=== PATIENT | male | born 1950 | race Caucasian/White ===

== ENCOUNTER → 2021-04-30 | Outpatient (CLI) | payer OTHER ==
[~2021-04-30] VITALS: Ht 175.3 cm; Wt 74.8 kg
[~2021-04-30] MED LIST: ANORO ELLIPTA1 EACH INH; ASA81BEC PO; CELEXA 10 MG TA10 M1 PO; COMBIVENT INH; COMBIVENT RESPIM4 GM PO; CYMBALTA60 MG PO; HYDROCHLOROTHIA25 M1 PO; INCRUSE ELLI62.5 MCG INH; LEVOTHYROXINE137 MC1 PO; LIPITOR40 MG PO; NORVASC10 MG PO; PLAVIX 75 MG TA75 MG PO; PROTONIX 20 MG20 MG PO; TRAMADOL 50 MG50 MG PO; ZESTRIL40 MG PO
[2021-04-30 15:03] VITALS: BP 112/61
--- NOTE | 2021-04-30 15:17 | NUR ---
Pain Clinic Assessment: 1. History of Osteoarthritis: Left Upper Extremity Right Upper Extremity History of Rheumatoid Arthritis: Not Applicable 2. Height: 5 ft. 9 in. 175.3 cm. Weight: 165.0 lb. oz. 74.844 kg. Patient's BMI: 24.4 3. Vital Signs: BP: 112/61 Pulse: 78 Resp: 18 Temp: 02 Sat: 96 ECG Mon: 4. Pain Intensity: 8 5. Fall Risk: Dizziness: N Needs help standing or walking: N Fallen in the last 3 months: N Fall risk comments: 6. Patient on Blood Thinner: Clopidogrel Bisulf(Plavix 7. History of Hypertension: Y 8. Opioid Therapy greater than 6 weeks: N Opiate Contract Signed: 9. Risk Assessment Tool Provided: LOW 10. Functional Assessment Tool: 11. Recreational Drug Use: Past greater than 3 mos Drug Type: MARAJUANIA Tobacco Use: Current Every Day Smoker Tobacco Type: Cigarettes Amount or Packs/day: 1/2-1 How Many Years: 57 Alcohol Use: No Frequency: Quant:
--- NOTE | 2021-05-07 09:33 | HPC ---
[facility] [place] [address] PAIN MANAGEMENT CONSULTATION Name: TERRI ANDERSON Room #: REG AJAY Montero.#: [id number] Admission: 04/30/21 Attend Phys: Oliver Chambers DO Discharge: Date of : 50 Report #: [id number] THIS REPORT FOR: cc: Jevon Viera MD, Mark S. MD Johnson, James E. DO ~ DOC #: [id number] cc: MD Oliver Sandoval, DATE OF SERVICE: 04/30/2021 REFERRING PHYSICIAN: Dr. Jevon Viera. CHIEF COMPLAINT: Low back pain, bilateral buttock pain and bilateral hand pain. HISTORY OF PRESENT ILLNESS: As you know, the patient is a 70-year-old male with longstanding history of chronic low back pain, bilateral hand pain due to osteoarthritis. He indicates the pain began in 2007, no inciting injury or trauma. He has significant changes to the joints of the hands consistent with osteoarthritic changes. He complains of low back pain that does not radiate except to the upper buttock area. He indicates that he has had these problems for years. He has sought a chiropractic manipulation, which did improved symptoms to some degree. He has had ongoing progressively worsening symptoms over the last 6 months. He reports no significant weakness or changes in distribution over the past couple of years. There is no radicular component to the patient's pain. His descriptors are more of aching and gnawing sensations and he described no paresthesias. He recently sought evaluation through his physician, Dr. Viera who had the patient undergo imaging studies to determine whether interventional treatments would be necessary. He was referred to our clinic after the findings of his lumbar spine showed changes at multiple levels to discuss interventional treatment options. The patient reports today his pain is continuous. He describes the pain as shooting and sharp. Places current pain score at 8/10, daily average at 7-8/10, worst pain has been is 10/10. The patient states his pain is exacerbated with most activities such as walking, standing and sitting, improves with lying down and repositioning. He has been referred to our service to discuss treatment options for axial back pain. PAST MEDICAL HISTORY: 1. Osteoarthritis. 2. Hypertension. 3. Hypothyroidism. 4. Degenerative joint disease. 5. Severe tobacco habituation. 6. History of stroke. [address] [address] PAIN MANAGEMENT CONSULTATION Name: TERRI ANDERSON Room #: REG AJAY Dax#: [id number] Admission: 04/30/21 Attend Phys: Oliver Chambers DO Discharge: Date of : 50 Report #: [id number] 7. Erectile dysfunction. 8. Dyslipidemia. PAST SURGICAL HISTORY: 1. Coronary artery stenting. 2. Bilateral kidney surgery. 3. Right hand surgery. SOCIAL HISTORY: The patient smokes 4 packs of tobacco per day, has done so for 57 years. Denies IV or illicit drug use. Denies any chronic alcohol use. He is retired and retired years ago. He is not receiving workmen's compensation nor is he trying to obtain disability benefits. He is not in litigation in regards to pain. He is unaccompanied at today's visit. REVIEW OF SYSTEMS: Positive for decrease in appetite, weight changes, night sweats, fatigue, weakness, frequent and recurrent headaches. He is wearing corrective eyewear, double vision and blurred vision, cataracts, hearing loss with tinnitus, shortness of breath with all activities, cardiovascular disease, frequent and recurrent coughs, loss of appetite, sexual difficulty, skin color changes, history of stroke, nervousness, depression and thyroid disease. All other review of systems negative per 12-point review of systems other than those listed in history of present illness. Pain impact score 27/70. Moderate interference of daily activities secondary to pain. ALLERGIES: SULFA AND BUPROPION. CURRENT MEDICATIONS: Hydrochlorothiazide 25 mg per day, amlodipine 10 mg per day, atorvastatin 40 mg per day, Anoro Ellipta 62.5/25 mcg inhaled, escitalopram 10 mg daily, lisinopril 40 mg per day, duloxetine 60 mg once a day, Plavix 75 mg per day, pantoprazole 20 mg per day, ipratropium bromide 4 times a day, tramadol 50 mg b.i.d., levothyroxine 137 mcg per day, Incruse Ellipta inhaler once a day, aspirin 81 mg per day. IMAGING: MRI lumbar spine obtained 04/10/2021 shows T12-L1 unremarkable. L1-L2 unremarkable. L2-L3 shows left paracentral disk herniation appears to be an extruded type herniation minimally migrating inferiorly, herniation itself measures 7 mm x 3 mm x 8 mm. There is slight left lateral recess narrowing. No central canal stenosis. Thecal sac measures 1.3 cm. L3-L4 shows moderate facet arthropathy and ligamentum flavum hypertrophy, mild central canal stenosis, mild to moderate bilateral neural foraminal narrowing. Thecal sac measuring 9 mm. L4-L5 disk bulge, far right lateral recess narrowing and moderate facet hypertrophy, epidural prominent fat, compression of the thecal sac is moderate to severe with 6 mm in dimension, foraminal narrowing is high-grade on the right, moderate on the left. L5-S1 disk bulge, facet arthropathy epidural fat, high-grade left neural foraminal narrowing. Thecal sac measuring 7 mm. [facility] [address] [place] [address] PAIN MANAGEMENT CONSULTATION Name: TERRI ANDERSON Room #: REG [facility].#: [id number] Admission: 04/30/21 Attend Phys: Oliver Chambers DO Discharge: Date of : 50 Report #: [id number] PQRS: The patient has known arthritic changes of the bilateral hands, bilateral shoulders, lumbar spine, bilateral hips and knees. No rheumatoid arthritis. He indicates pain level of 8/10. He is not a fall risk, has not had a fall in last 3 months. He is on Plavix and has not discontinued the medication. He is treated for hypertension. He is on chronic opioid like medication, has a low opiate addiction potential despite the fact that he has a 57-year-old pack smoking history. Pain impact is rated at 24/70. Moderate interference of daily activities secondary to pain. PHYSICAL EXAMINATION: VITAL SIGNS: Blood pressure 112/61, pulse 78, respiratory rate 18 and unlabored. The patient is 96% on room air. Height 5 feet 9 inches tall, weight 165 pounds, BMI calculated 24.4. GENERAL: Well-developed, well-nourished, well-hydrated 70-year-old male, appears much older than stated age, smells strongly of tobacco smoke, placing current pain score at 8/10. HEENT: Normocephalic, atraumatic. Pupils are round. Extraocular muscles are intact. His speech is normal for the patient. He is wearing a mask in compliance with COVID-19 regulations. LUNGS: Currently clear, but there is prolonged expiratory phase and auditory expiratory wheeze. CARDIOVASCULAR: Regular. No appreciable gallop, no rub. EXTREMITIES: Show no cyanosis, no edema. There is early noting of clubbing of the hands. MUSCULOSKELETAL: Palpatory tenderness is noted over the paraspinal musculature of lower lumbar spine. No spinous process tenderness. Seated straight leg raising is negative. Supine straight leg raising is negative. Fabere's test is negative. Modified Gaenslen's positive for axial low back pain. Ankle clonus negative. Babinski is negative. Lumbar provocation testing is met with increasing axial back pain. Muscle bulk and tone is symmetrical in lower extremities. Gait appears antalgic favoring right lower extremity over left. Stance is slightly forward flex, minor loss of lordotic curvature. There is noted scoliotic curvature as well in his stance. ASSESSMENT: 1. Chronic low back pain. 2. Severe facet arthropathy of the lumbar spine. 3. 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 4. Displacement of lumbar intervertebral disk without radicular symptoms. 5. Lumbar degeneration. 6. Chronic intractable pain. PLAN: 1. Based on today's physical exam and history, the patient has provided, the description the patient uses in regards to pain as well as location of symptoms, it would appear he is suffering from facet arthropathy leading to axial back [address] [address] PAIN MANAGEMENT CONSULTATION Name: TERRI ANDERSON Room #: MILAN AJAY Verduzco#: [id number] Admission: 04/30/21 Attend Phys: Oliver Chambers DO Discharge: Date of : 50 Report #: [id number] pain. He does have foraminal stenosis noted at multiple levels, specifically most severe at the L4-L5 and L5-S1 level though at this point, the patient is not complaining of any radicular symptoms. It is noted in Dr. iVera's note provided to us from their visit 03/27/2021 that there were reports of radicular symptoms. I am unable to elicit those today. We discussed with the patient the treatment options to address axial back pain and the possibility of lumbar radiculopathy following was discussed with the patient today. We discussed with the patient, initially the findings of his MRI. We took over 18 minutes of time reviewing the MRI with the patient describing the findings from the L1 through S1 levels and how they may correlate to symptoms. After that discussion, we discussed the treatment options that we would recommend. We initially discussed physical therapy, stretching exercise, core strengthening as a treatment approach. This will help with his axial back pain due to facet arthropathy and weakness of the paraspinal musculature. We discussed medication management, which will be handled by either his primary care physician or the referring physician. We discussed interventional treatment such as intraarticular facet injections, medial branch nerve blocks and radiofrequency lesioning to address his axial back pain symptoms due to facet arthropathy. We discussed lumbar epidural injection as a way to treat his low back pain if lumbar radicular symptoms are noted. We also discussed with the patient surgical options, which would include addressing the L4-L5 and L5-S1 level the most likely source of his current pain. After reviewing the risks and benefits of all proposed treatment options, the patient chose to return to see his primary care physician and Dr. Viera in regards to medication management. 2. The patient has requested that we provide suggestions for treatment to address his symptoms. Unfortunately, the medication of choice for facet arthropathy pain cannot be utilized as he is currently on an anticoagulant and nonsteroidal anti-inflammatories as the medication of choice. Treatment options could include continuation of the tramadol, which the patient is currently on with a baseline treatment with an elevated dose of either Cymbalta, which an increase in his medication would be recommended as he is only at 60 mg a day. That medication could be escalated up to 120 mg, which will provide more analgesic benefit. One could consider starting the patient on a long-term opioid medication, but we would recommend caution as the patient reports that he does use marijuana consistently and continues to participate in active smoking, a pack of tobacco per day, which places him at a high risk for opioid addiction potential. We have advised the patient if he wishes to initiate medication management, he can discuss this with his PCP or his referring physician. 3. We have offered to the patient the opportunity to return to undergo injections. He is resistant to look to that type of option of treatment. We understand his concern about this treatment course and it is up to the patient whether or not he wishes to consider this option in the future. We will make ourselves available if requested to rediscuss these options with the patient. If he wishes to participate in interventional treatment he will have to come off his Plavix for 7 days and receive clearance [place] [address] PAIN MANAGEMENT CONSULTATION Name: TERRI ANDERSON Room #: REG AJAY Verduzco#: [id number] Admission: 04/30/21 Attend Phys: Oliver Chambers DO Discharge: Date of : 50 Report #: [id number] able to do so. This does place him at some risk as he does have a history of cardiovascular disease and stroke for which the Plavix has been utilized to treat. He will have to discuss the risks and benefits of coming off that medication, if he wishes interventional therapy. 4. We wish to thank Dr. Viera for the referral of the patient to our clinic. We are hopeful the information provided here will help direct his care more fully. We will see him back in followup visit if requested or if the patient wishes to undergo interventional treatments. Again, we wish to thank you for the opportunity to see the patient in consultation. DO COCO Monae/ALAN <ELECTRONICALLY SIGNED> By: Oliver Chambers DO 05/07/21 [id number] Oliver Chambers DO /nt
== END ==
LOC: PAIN 10:50
PROVIDERS: ATTEND Anesthesiology Pain Medicine
DX: M51.16 Intervertebral disc disorders with radiculopathy, lumbar region (principal); G89.4 Chronic pain syndrome; M48.061 Spinal stenosis, lumbar region without neurogenic claudication; Z79.891 Long term (current) use of opiate analgesic; Z79.899 Other long term (current) drug therapy; Z88.2 Allergy status to sulfonamides; Z88.6 Allergy status to analgesic agent